=== PATIENT | male | born 1950 | race American Indian/Alaskan Native ===

== ENCOUNTER 2019-02-04 10:11 | Emergency (ER) | payer MEDICARE ==
[2019-02-04 10:25] VITALS: BP 115/77
--- NOTE | 2019-02-04 10:31 | Emergency Department Report ---
Upper Extremity - HPI Chief Complaint: Extremity Injury, Upper Stated Complaint: LT SHOULDER PAIN Time Seen by Provider: 02/04/19 10:31 Upper Extremity: Left Shoulder Occurred When: 5 Days Mechanism: Other (pt denies fall or trauma) Severity: mild Symptoms: Yes Pain with Movement, No Deformity, No Limited Range of Movement, No Numbness, No Weakness, No Swelling, No Bruising/Ecchymosis, No Laceration or Abrasion Other History: Patient is a 68-year-old male with no past medical history that presents to emergency room with left shoulder pain. Patient denies injuring his shoulder. Patient patient states going on for 5 days. Patient denies fall. Patient denies trauma. Patient states that the pain is worse with movement and better with rest and not moving his shoulder. Patient has taken ibuprofen 200 mg with some relief. Patient also took a Flexeril. ED Review of Systems ROS: Stated complaint: LT SHOULDER PAIN Other details as noted in HPI Constitutional: denies: chills, fever Eyes: denies: eye pain, eye discharge, vision change ENT: denies: ear pain, throat pain Respiratory: denies: cough, shortness of breath, wheezing Cardiovascular: denies: chest pain, palpitations Endocrine: no symptoms reported Gastrointestinal: denies: abdominal pain, nausea, diarrhea Genitourinary: denies: urgency, dysuria Musculoskeletal: denies: back pain, joint swelling, arthralgia Skin: denies: rash, lesions Neurological: denies: headache, weakness, paresthesias Psychiatric: denies: anxiety, depression Hematological/Lymphatic: denies: easy bleeding, easy bruising ED Past Medical Hx - Past Medical History Previous Medical History?: No - Surgical History Past Surgical History?: Yes Additional Surgical History: Lt. knee, and hernia repair x2 - Family History Family history: no significant - Social History Smoking Status: Current Every Day Smoker Substance Use Type: Alcohol Upper Extremity Exam - Exam General: Vital signs noted. No distress. Alert and acting appropriately. Head and Torso: No HEENT Abnormality, No Neck Tenderness, No Chest/Lungs Abnormality, No Abdominal Tenderness, No Back Tenderness Shoulder Exam: Yes Shoulder Tenderness (mild anterior ttp. ), Yes Normal Range of Motion in Shoulder, No Clavicle Tenderness, No Shoulder Deformity, No AC Joint Tenderness Arm Exam: No Arm/Humerus Tenderness, No Arm Deformity Elbow: Yes Normal Range of Motion in Elbow, No Elbow Tenderness, No Elbow Deformity Forearm: No Forearm Tenderness, No Forearm Deformity, No Pain with Pronation, No Pain with Supination Wrist: Yes Normal ROM in Wrist, No Wrist Tenderness, No Wrist Deformity, No Snuffbox Tenderness, No Pain with Axial Thumb Compression Hand: Yes Normal ROM in Digit(s), No Hand Tenderness, No Hand Deformity, No Digit Tenderness, No Digit(s) Deformity, No Tendon Dysfunction CMS Exam: No Broken Skin, No Normal Distal Pulses, No Normal Capillary Refill, No Normal Distal Sensation ED Course Vital Signs 02/04/19 10:21 Temperature 98.1 F Pulse Rate 76 Respiratory 16 Rate Blood Pressure 115/77 O2 Sat by Pulse 99 Oximetry - Reevaluation(s) Reevaluation #1: Discussed plan of care with patient. Patient agrees and not having a x-ray. Patient states she would rather follow up with an orthopedist have an MRI done of his shoulder. Patient given discharge instructions. Patient given medication instructions. Patient voiced understanding of all instructions. Patient instructed to follow up with orthopedist as soon as possible. 02/04/19 10:35 ED Medical Decision Making - Medical Decision Making Patient is a 68-year-old male that has worse or with shoulder pain. Shoulder pain secondary to his shoulder sprain. Patient discharged home. Patient is discharged. Patient given discharge instructions. Patient is to follow-up with orthopedics. - Differential Diagnosis shoulder sprain or strain. Shoulder pain Critical care attestation.: If time is entered above; I have spent that time in minutes in the direct care of this critically ill patient, excluding procedure time. ED Disposition Clinical Impression: Shoulder pain Qualifiers: Chronicity: acute Laterality: left Qualified Code(s): M25.512 - Pain in left shoulder Shoulder sprain Qualifiers: Encounter type: initial encounter Shoulder sprain type: unspecified sprain Laterality: left Qualified Code(s): S43.402A - Unspecified sprain of left shoulder joint, initial encounter Disposition: TO HOME OR SELFCARE Is pt being admited?: No Does the pt Need Aspirin: No Condition: Stable Instructions: Shoulder Sprain (ED) Additional Instructions: patient to follow up with pcp in 2-3 days. patient to follow up with ortho in 2-3 days. patient to take advil as needed for pain. patient to rest. patient to increase water. patient to avoid exercise and strenuous activity until cleared by ortho. Referrals: ALEX BEST MD [Staff Physician] - 2-3 Days Time of Disposition: 10:45
== END 2019-02-04 10:52 | disposition home or self-care (01) ==
LOC: ED 10:11
DX: S43.402A Unspecified sprain of left shoulder joint, initial encounter (principal); F17.200 Nicotine dependence, unspecified, uncomplicated; X58.XXXA Exposure to other specified factors, initial encounter; Y93.89 Activity, other specified; Y92.89 Other specified places as the place of occurrence of the external cause; Y99.8 Other external cause status
CPT/HCPCS: 99282

== ENCOUNTER 2019-05-14 20:50 | Emergency (ER) | payer MEDICARE ==
[2019-05-14 21:28] VITALS: BP 153/93
--- NOTE | 2019-05-14 22:41 | XRay Report ---
LUMBAR SPINE, 2 VIEWS INDICATION / CLINICAL INFORMATION: back pain. COMPARISON: None available. FINDINGS: Vertebral body heights are maintained. Disc spaces are fairly well-preserved. Alignment is normal. Th ere is some mild spondylitic change diffusely. Facet degenerative changes noted diffusely as well. No visible fracture. IMPRESSION: Mild diffuse spondylytic and facet degenerative change. Signer Name: Yessica No MD Signed: 05/14/2019 10:37 PM Workstation Name: [id number]
[2019-05-14] MEDS ORDERED: NORCO 5/325 PO STA (23:51)
--- NOTE | 2019-05-15 00:26 | Emergency Department Report ---
ED Back Pain/Injury HPI - General Chief Complaint: Back Pain/Injury Stated Complaint: BACK INJURY Time Seen by Provider: 05/14/19 23:50 Source: patient Limitations: No Limitations - History of Present Illness Initial Comments: Which on the back with some dogs wave mistake when he fell backwards onto his buttocks sending pain running across his lower back region. Pain was sharp MD Complaint: back pain, fall -: Sudden Similar Symptoms Previously: No Place: home Radiation: buttocks Severity: mild Quality: dull Consistency: constant Improves With: none Worsens With: none Associated Symptoms: denies other symptoms. denies: chest pain, numbness, difficulty walking, cough, fever/chills, constipation, headaches, abdominal pain, nausea/vomiting, rash, seizure - Related Data Previous Rx's Medication Instructions Recorded Last Taken Type Ketorolac [Toradol] 10 mg PO Q6H PRN #15 tablet 05/15/19 Unknown Rx methOCARBAMOL [Robaxin TAB] 750 mg PO Q8H PRN #14 tablet 05/15/19 Unknown Rx Allergies Allergy/AdvReac Type Severity Reaction Status Date / Time No Known Allergies Allergy Unverified 05/14/19 21:29 ED Review of Systems ROS: Stated complaint: BACK INJURY Other details as noted in HPI Comment: All other systems reviewed and negative ED Past Medical Hx - Past Medical History Previous Medical History?: Yes - Surgical History Past Surgical History?: Yes Additional Surgical History: Lt. knee, and hernia repair x2 - Social History Smoking Status: Current Every Day Smoker Substance Use Type: None - Medications Home Medications: Home Medications Medication Instructions Recorded Confirmed Last Taken Type Ketorolac [Toradol] 10 mg PO Q6H PRN #15 tablet 05/15/19 Unknown Rx methOCARBAMOL [Robaxin TAB] 750 mg PO Q8H PRN #14 tablet 05/15/19 Unknown Rx ED Physical Exam - General Limitations: No Limitations General appearance: alert, in no apparent distress - Head Head exam: Present: atraumatic, normocephalic - Eye Eye exam: Present: normal appearance, PERRL, EOMI - ENT ENT exam: Present: normal exam, normal orophraynx, mucous membranes moist, TM's normal bilaterally - Neck Neck exam: Present: normal inspection, full ROM - Respiratory Respiratory exam: Present: normal lung sounds bilaterally. Absent: respiratory distress, wheezes, rales, rhonchi, chest wall tenderness, accessory muscle use, decreased breath sounds - Cardiovascular Cardiovascular Exam: Present: regular rate, normal rhythm. Absent: systolic murmur, diastolic murmur, rubs, gallop - GI/Abdominal GI/Abdominal exam: Present: soft, normal bowel sounds - Rectal Rectal exam: Present: deferred - Extremities Exam Extremities exam: Present: normal inspection - Back Exam Back exam: Present: normal inspection - Neurological Exam Neurological exam: Present: alert, oriented X3 - Psychiatric Psychiatric exam: Present: normal affect, normal mood - Skin Skin exam: Present: warm, dry, intact, normal color. Absent: rash ED Course Vital Signs 05/14/19 21:26 Temperature 98.3 F Pulse Rate 64 Respiratory 16 Rate Blood Pressure 153/93 O2 Sat by Pulse 96 Oximetry Critical care attestation.: If time is entered above; I have spent that time in minutes in the direct care of this critically ill patient, excluding procedure time. ED Disposition Clinical Impression: Lower back pain Disposition: DC-01 TO HOME OR SELFCARE Is pt being admited?: No Does the pt Need Aspirin: No Condition: Stable Instructions: Acute Low Back Pain (ED) Prescriptions: methOCARBAMOL [Robaxin TAB] 750 mg PO Q8H PRN #14 tablet PRN Reason: Pain, Moderate (4-6) Ketorolac [Toradol] 10 mg PO Q6H PRN #15 tablet PRN Reason: Pain Referrals: JOHN CARDONA MD [Primary Care Provider] - 3-5 Days
== END 2019-05-15 00:50 | disposition home or self-care (01) ==
LOC: ED 20:50
DX: M54.5 Low back pain (principal); F17.200 Nicotine dependence, unspecified, uncomplicated; Z98.890 Other specified postprocedural states; Z79.899 Other long term (current) drug therapy; W01.0XXA Fall on same level from slipping, tripping and stumbling without subsequent striking against object, initial encounter; Y93.02 Activity, running; Y92.098 Other place in other non-institutional residence as the place of occurrence of the external cause; Y99.8 Other external cause status
CPT/HCPCS: 72100; 99283